=== PATIENT | male | born 1995 ===

== ENCOUNTER 2017-05-08 15:49 | Emergency (ER) | payer OTHER ==
[2017-05-08 15:59] VITALS: BP 138/82; PULSE 70; RESP 18; TEMP 98; O2SAT 100
--- NOTE | 2017-05-08 17:43 | ED PDOC ---
HPI: General Adult Time Seen by Provider: 05/08/17 16:04 Chief Complaint (Nursing): ENT Problem Chief Complaint (Provider): Denies complaint History Per: Patient History/Exam Limitations: language barrier, other Additional Complaint(s): Bagging Machine Operator used. Pt states that he was seeing an drum sander offbearer in [facility] who gave him hearing aid. Pt states he has been hearing impaired since he was 8. Pt states he is worried it will affect his job. Pt moved to [place] and would like to see a specialist here. Past Medical History Reviewed: Historical Data, Nursing Documentation, Vital Signs Vital Signs: Last Vital Signs Temp 98 F 05/08/17 15:52 Pulse 70 05/08/17 15:52 Resp 18 05/08/17 15:52 BP 138/82 05/08/17 15:52 Pulse Ox 100 05/08/17 17:43 - Medical History PMH: No Chronic Diseases - Surgical History Surgical History: Appendectomy - Family History Family History: States: No Known Family Hx - Living Arrangements Living Arrangements: With Family - Social History Alcohol: None - Immunization History Hx Tetanus Toxoid Vaccination: No Hx Influenza Vaccination: No Hx Pneumococcal Vaccination: No - Home Medications Home Medications: Ambulatory Orders Medication Instructions Recorded Naproxen [Naprosyn] 500 mg PO BID PRN #30 tab 06/11/16 No Home Meds 06/11/16 - Allergies Allergies/Adverse Reactions: Allergies Allergy/AdvReac Type Severity Reaction Status Date / Time No Known Allergies Allergy Verified 03/04/17 02:43 Review of Systems ROS Statement: Except As Marked, All Systems Reviewed And Found Negative Constitutional: Negative for: Fever, Chills Gastrointestinal: Negative for: Nausea, Vomiting Genitourinary Male: Negative for: Dysuria, Frequency Physical Exam - Reviewed Nursing Documentation Reviewed: Yes Vital Signs Reviewed: Yes - Physical Exam Appears: Positive for: Well, Non-toxic, No Acute Distress Head Exam: Positive for: ATRAUMATIC, NORMAL INSPECTION, NORMOCEPHALIC Skin: Positive for: Normal Color, Warm, DRY Eye Exam: Positive for: Normal appearance ENT: Positive for: Normal ENT Inspection Neck: Positive for: Normal, Painless ROM Respiratory: Negative for: Accessory Muscle Use, Respiratory Distress Back: Positive for: Normal Inspection Extremity: Positive for: Normal ROM Neurologic/Psych: Positive for: Alert, Oriented - ECG O2 Sat by Pulse Oximetry: 100 Disposition - Clinical Impression Clinical Impression: Hearing impairment - Patient ED Disposition Is Patient to be Admitted: No Counseled Patient/Family Regarding: Diagnosis, Need For Followup - Disposition Referrals: Dog Handler [facility] Trainer [facility] [Outside] Adam Henry MD [Staff Provider] - Harsh Arias MD [Staff Provider] - Disposition: Routine/Home Disposition Time: 17:42 Condition: GOOD Instructions: How to Choose a Hearing Aid (DC) Forms: [facility] (Estonian) Print Language: BRITISH
== END 2017-05-08 18:07 | disposition home or self-care (01) ==
LOC: H.ER 15:49
DX: H91.90 Unspecified hearing loss, unspecified ear (principal)

== ENCOUNTER 2018-09-10 12:36 | Emergency (ER) | payer SELFPAY ==
[2018-09-10 12:53] VITALS: BP 149/78; PULSE 78; RESP 18; TEMP 99.1; O2SAT 99
--- NOTE | 2018-09-10 13:03 | ED PDOC ---
Lower Extremity Pain/Injury Time Seen by Provider: 09/10/18 12:48 Chief Complaint (Nursing): Lower Extremity Problem/Injury History Per: Patient, Laborer Rags (Vincentian [id number]) Additional Complaint(s): Pt. states yesterday evening he fell down some stairs twisting his L ankle. Has had progressively worsening pain to the area since. Denies numbness, tingling, other injury. Past Medical History Reviewed: Historical Data, Nursing Documentation, Vital Signs Vital Signs: Last Vital Signs Temp 99.1 F 09/10/18 12:52 Pulse 78 09/10/18 12:52 Resp 18 09/10/18 12:52 BP 149/78 09/10/18 12:52 Pulse Ox 99 09/10/18 12:52 - Surgical History Surgical History: Appendectomy - Family History Family History: States: No Known Family Hx - Immunization History Hx Tetanus Toxoid Vaccination: No Hx Influenza Vaccination: No Hx Pneumococcal Vaccination: No - Home Medications Home Medications: Ambulatory Orders Medication Instructions Recorded Naproxen [Naprosyn] 500 mg PO BID PRN #30 tab 06/11/16 No Home Meds 06/11/16 - Allergies Allergies/Adverse Reactions: Allergies Allergy/AdvReac Type Severity Reaction Status Date / Time No Known Allergies Allergy Verified 03/04/17 02:43 Review of Systems ROS Statement: Except As Marked, All Systems Reviewed And Found Negative Musculoskeletal: Positive for: Foot Pain Physical Exam - Physical Exam Appears: Positive for: Well, Non-toxic, No Acute Distress Skin: Positive for: Normal Color, Warm. Negative for: Rash Eye Exam: Positive for: Normal appearance Pulses-Dorsalis Pedis (L): 2+ Pulses-Dorsalis Pedis (R): 2+ Extremity: Positive for: Normal ROM (FROM actively of L ankle), Capillary Refill (< 2 seconds of L lower extremity), Other (L lateral malleolus with minimal tenderness and swelling; L dorsolateral aspect of foot with minimal swelling without tenderness; no break in skin integrity of L ankle/foot) Neurological/Psych: Positive for: Awake, Alert, Oriented (x3) - ECG O2 Sat by Pulse Oximetry: 99 - Radiology X-Ray: Interpreted by Me (L ankle/foot x-ray) X-Ray Interpretation: No Acute Disease - Progress ED Course And Treament: [id number] Vincentian Ankle immobilized in aircast splint applied by RN. Crutches and crutch walking instructions provided. Advised to f/u with home performance laborer if pain does not improve after resting and immobilizing ankle. Disposition - Clinical Impression Clinical Impression: Ankle injury - Patient ED Disposition Is Patient to be Admitted: No - Disposition Referrals: Podiatry Clinic [Outside] [facility] [Outside] Disposition: Routine/Home Disposition Time: 13:44 Condition: STABLE Additional Instructions: FOLLOW UP WITH PRODUCTION PROOFREADER FOR FURTHER EVALUATION RETURN TO ED IMMEDIATELY IF SYMPTOMS WORSEN VAMSI DIAZ, thank you for letting us take care of you today. Your provider was Norman Garcia MD and you were treated for LT FOOT PAIN. The emergency medical care you received today was directed at your acute symptoms. If you were prescribed any medication, please fill it and take as directed. It may take several days for your symptoms to resolve. Return to the Emergency Department if your symptoms worsen, do not improve, or if you have any other problems. Please contact your doctor or call one of the physicians/clinics you have been referred to that are listed on the Patient Visit Information form that is included in your discharge packet. Bring any paperwork you were given at discharge with you along with any medications you are taking to your follow up visit. Our treatment cannot replace ongoing medical care by a primary care provider outside of the emergency department. Thank you for allowing the [facility] team to be part of your care today. If you had an X-Ray or CT scan: A Radiologist will review the ED reading if any change in treatment is needed we will contact you. If you had a blood, urine, or wound culture: It will take several days for the results, if any change in treatment is needed we will contact you. If you had an STI test: It will take 48 hours for the results. Please call after 1 week if you have not heard back. Instructions: Ankle Sprain (DC), How to Use Crutches, Going Up and Down Curbs or Stairs With a Walker or Crutches Print Language: SWEDISH
--- NOTE | 2018-09-10 18:02 | RAD ---
Date of service: 09/10/2018 PROCEDURE: Left Foot Radiographs. HISTORY: trauma COMPARISON: None. TECHNIQUE: 3 views obtained. FINDINGS: BONES: No acute fracture or destructive bony lesion identified. JOINTS: Normal. SOFT TISSUES: Normal. OTHER FINDINGS: None. IMPRESSION: Unremarkable left foot radiographs.
--- NOTE | 2018-09-10 18:03 | RAD ---
Date of service: 09/10/2018 PROCEDURE: Left Ankle Radiographs. HISTORY: trauma COMPARISON: None available. TECHNIQUE: 3 views obtained. FINDINGS: BONES: No acute fracture or destructive bony lesion identified. Small bone island identified at the talar midbody. JOINTS: No subluxation or dislocation. No osteoarthritis. Ankle mortise maintained. Talar dome intact SOFT TISSUES: Prominent lateral malleolar soft tissue edema noted. OTHER FINDINGS: None. IMPRESSION: No fracture dislocation left ankle. Talar dome intact. Mortise unremarkable. Lateral malleolar soft tissue edema appears prominent.
== END 2018-09-10 14:50 | disposition home or self-care (01) ==
LOC: H.ER 12:36
DX: S99.912A Unspecified injury of left ankle, initial encounter (principal); W10.9XXA Fall (on) (from) unspecified stairs and steps, initial encounter; Y92.89 Other specified places as the place of occurrence of the external cause